=== PATIENT | female | born 1935 ===

== ENCOUNTER 2022-02-14 08:15 | Inpatient (IN) | payer OTHER ==
[~2022-02-14] VITALS: Ht 152.4 cm; Wt 45.4 kg
[2022-02-14] MEDS ORDERED: BISOPROLOL FUMAR5 MG PO (10:15)
[2022-02-14] MEDS ORDERED: AMLODIPINE BESYL5 MG PO (10:15)
[2022-02-14] MEDS ORDERED: AVAPRO300 MG PO (10:15)
[2022-02-14] MEDS ORDERED: ELIQUIS2.5 MG PO (10:16)
[2022-02-21] MEDS ORDERED: HYOSCYAMINE0.125 M1 SL (14:21)
[2022-02-21] MEDS ORDERED: ULTRACET PO (14:22)
== END 2022-02-21 15:41 | disposition home or self-care (01) | DRG 331 ==
LOC: O/R 02-18 07:16 → SURH 02-18 07:16 → SURG 02-18 08:15 → SURH 02-18 15:06
PROVIDERS: ADMIT Surgery; ATTEND Surgery
PROC: 0DBL3ZZ Excision of Transverse Colon, Percutaneous Approach (ICD-10-PCS; 2022-02-18)
PROC: 0DTF4ZZ Resection of Right Large Intestine, Percutaneous Endoscopic Approach (ICD-10-PCS; principal; 2022-02-18 13:00)
DX: C18.2 Malignant neoplasm of ascending colon (principal); I11.9 Hypertensive heart disease without heart failure; I48.0 Paroxysmal atrial fibrillation; D50.0 Iron deficiency anemia secondary to blood loss (chronic); Z20.822 Contact with and (suspected) exposure to COVID-19